=== PATIENT | male | born 1950 | race Caucasian/White ===

== ENCOUNTER 2016-10-31 13:04 | Outpatient (CLI) | payer MEDICAID | END 2016-10-31 13:05 | disposition home or self-care (01) | DX: E11.9 Type 2 diabetes mellitus without complications (principal); E78.5 Hyperlipidemia, unspecified; I10 Essential (primary) hypertension ==

== ENCOUNTER 2017-02-04 10:26 | Outpatient (CLI) | payer MEDICAID | END 2017-02-04 10:27 | disposition home or self-care (01) | DX: E78.5 Hyperlipidemia, unspecified (principal); E11.9 Type 2 diabetes mellitus without complications ==

== ENCOUNTER 2017-04-18 12:48 | Emergency (ER) | payer MEDICAID ==
[2017-04-18] MEDS: HEPARIN 25,000 UNITS/500 ML 500 ML IV STA (13:02)
[2017-04-18] MEDS: ASPIRIN CHEW 81 MG TABLET PO STA (13:02)
[2017-04-18] MEDS: HEPARIN 5,000 UNIT/ML VIAL IVP ONE (13:02)
--- NOTE | 2017-04-18 13:02 | ED Physician Documentation ---
PD HPI CHEST PAIN - Stated complaint Stated Complaint: CP - Chief complaint Chief Complaint: Cardiac - History obtained from History obtained from: Patient - History of Present Illness Timing - onset: How many days ago (3 days intermittently) Timing - onset during: Rest Timing - duration: Days (3) Timing - details: Intermittant, Other (constant since 10am) Pain level max: 10 Pain level now: 10 Quality: Pressure, Aching, Pain Location: Substernal, Left chest Radiation: Other (non-radiating) Improved by: Nothing Worsened by: Other (nothing) Associated symptoms: Shortness of air, Nausea. No: Vomiting, Feeling faint / dizzy, General Weakness, Palpitations, Cough Similar symptoms before: Has not had sx before Recently seen: Not recently seen - Additional information Additional information: diabetic male. non-smoker Review of Systems Ten Systems: 10 systems reviewed and negative Constitutional: denies: Fever, Chills Ears: denies: Ear pain Nose: denies: Rhinorrhea / runny nose, Congestion Throat: denies: Sore throat Cardiac: denies: Palpitations Respiratory: denies: Cough, Hemoptysis, Wheezing GI: denies: Abdominal Pain, Nausea, Vomiting, Diarrhea Skin: denies: Rash Musculoskeletal: denies: Neck pain, Back pain Neurologic: denies: Headache PD PAST MEDICAL HISTORY - Past Medical History Past Medical History: Yes Cardiovascular: Hypertension Endocrine/Autoimmune: Type 2 diabetes - Present Medications Home Medications: Ambulatory Orders Medication Instructions Recorded Confirmed Metformin HCl 500 mg PO BID 04/18/17 04/18/17 - Allergies Allergies/Adverse Reactions: Allergies Allergy/AdvReac Type Severity Reaction Status Date / Time No Known Drug Allergies Allergy Verified 04/18/17 13:01 - Social History Does the pt smoke?: No Does the pt have substance abuse?: No - Family History Family history: reports: Non contributory PD ED PE NORMAL - Vitals Vital signs reviewed: Yes - General General: Alert and oriented X 3, No acute distress, Well developed/nourished - HEENT HEENT: Moist mucous membranes - Neck Neck: Supple, no meningeal sign - Cardiac Cardiac: RRR, Strong equal pulses - Respiratory Respiratory: No respiratory distress, Clear bilaterally - Abdomen Abdomen: Soft, Non tender, Non distended - Derm Derm: Warm and dry - Extremities Extremities: No edema, No calf tenderness / cord - Neuro Neuro: Alert and oriented X 3 - Psych Psych: Normal mood, Normal affect Results - Vitals Vitals: Vital Signs - 24 hr 04/18/17 04/18/17 04/18/17 12:49 13:00 13:10 Temperature 35.9 C L Heart Rate 104 H 99 97 Respiratory 18 22 18 Rate Blood Pressure 195/135 H 183/127 H 175/108 H O2 Saturation 100 100 100 Oxygen O2 Source Room air - EKG (time done) 1257 Rate: Rate (enter#) (103) Rhythm: Sinus tachycardia, Other (PVC) [place]: Normal Intervals: QRS normal Ischemia: ST elevation c/w ischemia (II, III, aVF), ST depression (V1-2) - Labs Labs: Laboratory Tests 04/18/17 04/18/17 04/18/17 12:55 12:55 12:55 WBC 10.9 H RBC 4.87 Hgb 15.1 Hct 43.1 MCV 88.6 MCH 31.0 MCHC 35.0 RDW 14.0 Plt Count 128 L MPV 9.1 Neut # 7.8 H Lymph # 2.2 [place] # 0.8 Eos # 0.0 Baso # 0.1 Absolute Nucleated RBC 0.01 Nucleated RBCs 0.0 Sodium 136 Potassium 3.7 Chloride 98 L Carbon Dioxide 25 Anion Gap 13.0 BUN 15 Creatinine 1.2 Estimated GFR (MDRD) 61 L Glucose 351 H Calcium 9.3 Total Bilirubin 0.9 AST 67 H ALT 50 Alkaline Phosphatase 55 Troponin I 2.87 H* Total Protein 7.5 Albumin 4.7 Globulin 2.8 Albumin/Globulin Ratio 1.7 Lipase 21 L - Rads (name of study) cxr Radiology: Prelim report reviewed, EMP read contemporaneously, See rad report ( No acute disease. ) PD MEDICAL DECISION MAKING - ED course Complexity details: reviewed old records, considered differential, d/w patient ED course: 1299 - Theresa Marjan (ED [facility]) graciously accepts in transfer. Patient was given aspirin, heparin, nitroglycerin. Activated STEMI protocol. Plavix held awaiting cardiology decision at [facility]. Patient is a 66-year-old male who walked into the emergency department with crushing substernal chest pain. This been intermittent the past 3 days, became constant this morning. Appears to have an inferior STEMI. STEMI protocol activated will transfer to [facility]. This document was made in part using voice recognition software. While efforts are made to proofread this document, sound alike and grammatical errors may occur. CXR taken, will fax report. Departure - Departure Disposition: 02 Transfer Acute Care Hosp Clinical Impression: STEMI (ST elevation myocardial infarction) Qualifiers: Involved coronary artery: unspecified coronary artery Qualified Code(s): I21.3 - ST elevation (STEMI) myocardial infarction of unspecified site Condition: Stable Discharge Date/Time: 04/18/17 13:12
[2017-04-18] MEDS: NITROGLYCERIN SL 0.4 MG TABLET SL STA (13:05)
[2017-04-18 13:06] LABS: BASOPHILS # (AUTO) 0.1 10^3/uL (0.0-0.1); BASOPHILS % (AUTO) 0.5 %; EOSINOPHILS % (AUTO) 0.4 %; HCT - HEMATOCRIT 43.1 % (42.0-52.0); HGB - HEMOGLOBIN 15.1 g/dL (14.0-18.0); LYMPHOCYTES # (AUTO) 2.2 10^3/uL (1.5-3.5); LYMPHOCYTES % (AUTO) 20.2 %; MEAN CORPUSCULAR VOLUME 88.6 fL (80.0-94.0); MEAN PLATELET VOLUME 9.1 fL (7.4-11.4); MONOCYTES # (AUTO) 0.8 10^3/uL (0.0-1.0); MONOCYTES % (AUTO) 7.4 %; NEUTROPHILS # (AUTO) 7.8 10^3/uL (1.5-6.6); NEUTROPHILS % (AUTO) 71.5 %; RED BLOOD COUNT 4.87 10^6/uL (4.70-6.10); UNCORRECTED WHITE BLOOD COUNT 10.9 x10^3/uL; WHITE BLOOD COUNT 10.9 x10^3/uL (4.8-10.8)
--- NOTE | 2017-04-18 13:12 | XRAY Preliminary Report ---
Exam: XR Chest 1 View IMPRESSION: No acute disease. [facility] SITE ID: [id number]
[2017-04-18 13:15] VITALS: BP 175/108
--- NOTE | 2017-04-18 13:15 | XRAY Report ---
EXAM: CHEST RADIOGRAPHY EXAM DATE: 04/18/2017 01:05 PM. CLINICAL HISTORY: Chest pain. COMPARISON: 09/08/2009. TECHNIQUE: 1 view. FINDINGS: Lungs/Pleura: No localized infiltrate, consolidation, effusion, or pneumothorax. Mediastinum: Normal heart size, unchanged. No definite distention of pulmonary vessels. Other: Degenerative changes. IMPRESSION: No acute disease. [facility] Referring Provider Line: [phone] SITE ID: [id number]
[2017-04-18 13:18] LABS: ALBUMIN/GLOBULIN RATIO 1.7 (1.0-2.2); BILIRUBIN,TOTAL 0.9 mg/dL (0.2-1.0); CALCIUM 9.3 mg/dL (8.5-10.3); CREATININE 1.2 mg/dL (0.6-1.2); POTASSIUM 3.7 mmol/L (3.5-5.0); TOTAL PROTEIN 7.5 g/dL (6.7-8.2)
== END 2017-04-18 13:12 | disposition short-term general hospital (02) ==
LOC: ED 12:48
DX: I21.3 ST elevation (STEMI) myocardial infarction of unspecified site (principal); I49.3 Ventricular premature depolarization; I10 Essential (primary) hypertension; E11.9 Type 2 diabetes mellitus without complications; Z79.84 Long term (current) use of oral hypoglycemic drugs
CPT/HCPCS: 36415; 71010; 80053; 83690; 84484; 85025; 93005; 96374; 96376; 99284; 99285

== ENCOUNTER 2017-04-18 13:17 | Outpatient (CLI) | payer MEDICAID | END 2017-04-18 13:18 | disposition short-term general hospital (02) | LOC: EMS 13:17 | PROVIDERS: ATTEND Surgery | DX: I21.3 ST elevation (STEMI) myocardial infarction of unspecified site (principal) | CPT/HCPCS: A0425; A0427 ==

== ENCOUNTER 2017-05-08 09:48 | Outpatient (CLI) | payer MEDICAID ==
[2017-05-08 19:07] LABS: HEMOGLOBIN A1C 1.06 g/dL
[2017-05-08 19:12] LABS: ALBUMIN/GLOBULIN RATIO 1.5 (1.0-2.2); BILIRUBIN,TOTAL 0.6 mg/dL (0.2-1.0); BUN - BLOOD UREA NITROGEN 14 mg/dL (6-20); CALCIUM 8.9 mg/dL (8.5-10.3); CARBON DIOXIDE - CO2 28 mmol/L (21-32); CHLORIDE 106 mmol/L (101-111); CHOL/HDL RATIO 3.4 (<5.0); CHOLESTEROL 117 mg/dL; GFR - MDRD 75 (>89); GLUCOSE 122 mg/dL (70-100); HDL CHOLESTEROL 34 mg/dL; LDL/HDL RATIO 1.8 (<3.6); POTASSIUM 4.1 mmol/L (3.5-5.0); SODIUM 142 mmol/L (135-145); TOTAL PROTEIN 6.9 g/dL (6.7-8.2); TRIGLYCERIDES 109 mg/dL; VLDL CHOLESTEROL 22 mg/dL
[2017-05-08 19:54] LABS: BILIRUBIN,URINE NEGATIVE (NEGATIVE); PH,URINE 5.5 PH (5.0-7.5)
[2017-05-08 21:13] LABS: UR CULTURE IF IND NOT INDICATED; WBC,URINE 0-3 /HPF (0-3)
== END 2017-05-08 09:49 | disposition home or self-care (01) ==
LOC: LAB.F 09:48
PROVIDERS: ATTEND Nurse Practitioner Family
DX: E11.9 Type 2 diabetes mellitus without complications (principal); E78.5 Hyperlipidemia, unspecified
CPT/HCPCS: 36415; 80053; 80061; 81001; 83036; 87086

== ENCOUNTER 2017-08-26 09:45 | Outpatient (CLI) | payer MEDICAID ==
[2017-08-26 18:17] LABS: BILIRUBIN,URINE NEGATIVE (NEGATIVE)
[2017-08-26 18:30] LABS: UR CULTURE IF IND NOT INDICATED; WBC,URINE 0-3 /HPF (0-3)
[2017-08-26 18:35] LABS: BASOPHILS % (AUTO) 0.4 %; EOSINOPHILS # (AUTO) 0.1 10^3/uL (0.0-0.7); EOSINOPHILS % (AUTO) 2.1 %; HCT - HEMATOCRIT 41.5 % (42.0-52.0); HGB - HEMOGLOBIN 13.9 g/dL (14.0-18.0); LYMPHOCYTES # (AUTO) 1.5 10^3/uL (1.5-3.5); LYMPHOCYTES % (AUTO) 27.3 %; MEAN CORPUSCULAR HEMOGLOBIN 30.4 pg (27.0-31.0); MEAN CORPUSCULAR HGB CONC 33.4 g/dL (32.0-36.0); MEAN PLATELET VOLUME 9.6 fL (7.4-11.4); MONOCYTES # (AUTO) 0.4 10^3/uL (0.0-1.0); MONOCYTES % (AUTO) 7.5 %; NEUTROPHILS # (AUTO) 3.4 10^3/uL (1.5-6.6); NEUTROPHILS % (AUTO) 62.7 %; NUCLEATED RED BLOOD CELLS AUTO 0.1 /100WBC; RED BLOOD COUNT 4.55 10^6/uL (4.70-6.10); RED CELL DISTRIBUTION WIDTH 14.3 % (12.0-15.0); UNCORRECTED WHITE BLOOD COUNT 5.4 x10^3/uL; WHITE BLOOD COUNT 5.4 x10^3/uL (4.8-10.8)
[2017-08-26 19:18] LABS: ALBUMIN/GLOBULIN RATIO 1.8 (1.0-2.2); BILIRUBIN,TOTAL 0.9 mg/dL (0.2-1.0); BUN - BLOOD UREA NITROGEN 16 mg/dL (6-20); CALCIUM 8.9 mg/dL (8.5-10.3); CARBON DIOXIDE - CO2 26 mmol/L (21-32); CHLORIDE 106 mmol/L (101-111); CHOL/HDL RATIO 3.8 (<5.0); CHOLESTEROL 140 mg/dL; CREATININE 1.1 mg/dL (0.6-1.2); GFR - MDRD 67 (>89); GLUCOSE 100 mg/dL (70-100); HDL CHOLESTEROL 37 mg/dL; LDL/HDL RATIO 2.2 (<3.6); SODIUM 138 mmol/L (135-145); TOTAL PROTEIN 6.5 g/dL (6.7-8.2); TRIGLYCERIDES 107 mg/dL; VLDL CHOLESTEROL 21 mg/dL
[2017-08-26 20:07] LABS: HEMOGLOBIN A1C 0.74 g/dL
== END 2017-08-26 09:46 | disposition home or self-care (01) ==
LOC: LAB.S 09:45
PROVIDERS: ATTEND Nurse Practitioner Family
DX: E11.9 Type 2 diabetes mellitus without complications (principal)
CPT/HCPCS: 36415; 80053; 80061; 81001; 82043; 82570; 83036; 84443; 85025; 87086

== ENCOUNTER 2017-11-19 08:55 | Outpatient (CLI) | payer OTHER ==
--- NOTE | 2017-11-19 13:51 | XRAY Report ---
THREE VIEW LUMBAR SPINE: 11/19/2017 CLINICAL INDICATION: Pain. FINDINGS: AP, lateral, coned down views of the lumbar spine demonstrate mild degenerative disk and facet disease. There is right hemisacralization of the lumbar spine, with pseudarthrosis formation. No compression fracture or subluxation is present. IMPRESSION: MILD DEGENERATIVE CHANGES. RIGHT HEMISACRALIZATION OF L5. TD: 11/19/2017 13:50
--- NOTE | 2017-11-19 13:52 | XRAY Report ---
CERVICAL SPINE WITH FLEXION AND EXTENSION: 11/19/2017 CLINICAL INDICATION: Neck sprain. FINDINGS: AP, lateral neutral, lateral flexion, lateral extension, odontoid views of the cervical spine demonstrate mild degenerative disk disease. There is no abnormal motion on flexion or extension to suggest ligamentous laxity. The prevertebral soft tissues appear unremarkable. IMPRESSION: MILD DEGENERATIVE CHANGES. NO EVIDENCE OF LIGAMENTOUS LAXITY ON FLEXION OR EXTENSION. TD: 11/19/2017 13:52
== END 2017-11-19 08:56 | disposition home or self-care (01) ==
LOC: DI.S 08:55
PROVIDERS: ATTEND Chiropractor
DX: M51.36 Other intervertebral disc degeneration, lumbar region (principal); M47.896 Other spondylosis, lumbar region; M50.30 Other cervical disc degeneration, unspecified cervical region
CPT/HCPCS: 72052; 72100

== ENCOUNTER 2017-12-23 08:00 | Outpatient (CLI) | payer MEDICARE, MEDICAID ==
[2017-12-23 19:21] LABS: HEMOGLOBIN A1C 0.71 g/dL; HEMOGLOBIN A1C % 6.5 % (4.6-6.2)
== END 2017-12-23 08:01 ==
LOC: LAB.S 08:00
PROVIDERS: ATTEND Nurse Practitioner Family
DX: E11.9 Type 2 diabetes mellitus without complications (principal)
CPT/HCPCS: 36415; 83036

== ENCOUNTER 2018-03-24 08:00 | Outpatient (CLI) | payer MEDICARE, MEDICAID ==
[2018-03-24 18:40] LABS: HB2 TOTAL 15.4 g/dL; HEMOGLOBIN A1C 0.78 g/dL; HEMOGLOBIN A1C % 6.8 % (4.6-6.2)
== END 2018-03-24 08:01 | disposition home or self-care (01) ==
LOC: LAB.S 08:00
PROVIDERS: ATTEND Nurse Practitioner Family
DX: E11.9 Type 2 diabetes mellitus without complications (principal)
CPT/HCPCS: 36415; 83036

== ENCOUNTER 2018-06-25 08:20 | Outpatient (CLI) | payer MEDICARE, MEDICAID | END 2018-06-25 08:21 | disposition home or self-care (01) | LOC: RT.S 08:20 | PROVIDERS: ATTEND Nurse Practitioner Family | DX: I49.9 Cardiac arrhythmia, unspecified (principal); R30.0 Dysuria | CPT/HCPCS: 81001; 93005 ==

== ENCOUNTER 2018-06-25 09:00 | Outpatient (CLI) | payer MEDICARE, MEDICAID ==
[2018-06-25 19:44] LABS: BILIRUBIN,URINE NEGATIVE (NEGATIVE); GLUCOSE, URINE (UA) 100 mg/dL (NEGATIVE); KETONES,URINE (UA) NEGATIVE (NEGATIVE); LEUKOCYTE ESTERASE, URINE NEGATIVE (NEGATIVE); NITRITE,URINE NEGATIVE (NEGATIVE); OCCULT BLOOD,URINE NEGATIVE (NEGATIVE); PH,URINE 5.5 PH (5.0-7.5); PROTEIN,URINE NEGATIVE (NEGATIVE); UROBILINOGEN,URINE 0.2 (NORMAL) E.U./dL (NORMAL)
[2018-06-25 19:58] LABS: BACTERIA,URINE None Seen /HPF (None Seen); CLARITY,URINE CLEAR (CLEAR); CRYSTALS,URINE >50 Calcium Oxalate /LPF; RBC,URINE None Seen /HPF (0-5); SQUAMOUS EPITHELIAL CELL,UR NONE SEEN (<= Few)
== END 2018-06-25 09:01 | disposition home or self-care (01) ==
LOC: LAB.R 09:00
PROVIDERS: ATTEND Nurse Practitioner Family
DX: R30.0 Dysuria (principal)
CPT/HCPCS: 81001; 87086

== ENCOUNTER 2019-01-08 11:23 | Outpatient (CLI) | payer MEDICARE, MEDICAID ==
[2019-01-08 17:12] LABS: BASOPHILS % (AUTO) 0.5 %; EOSINOPHILS # (AUTO) 0.1 10^3/uL (0.0-0.7); EOSINOPHILS % (AUTO) 1.4 %; HGB - HEMOGLOBIN 13.9 g/dL (14.0-18.0); LYMPHOCYTES # (AUTO) 1.1 10^3/uL (1.5-3.5); LYMPHOCYTES % (AUTO) 19.3 %; MEAN CORPUSCULAR HEMOGLOBIN 30.6 pg (27.0-31.0); MEAN CORPUSCULAR HGB CONC 33.2 g/dL (32.0-36.0); MEAN CORPUSCULAR VOLUME 92.3 fL (80.0-94.0); MEAN PLATELET VOLUME 10.2 fL (7.4-11.4); MONOCYTES # (AUTO) 0.4 10^3/uL (0.0-1.0); MONOCYTES % (AUTO) 6.9 %; NEUTROPHILS # (AUTO) 4.3 10^3/uL (1.5-6.6); NEUTROPHILS % (AUTO) 71.9 %; PLT - PLATELET COUNT 122 10^3/uL (130-450); RED BLOOD COUNT 4.55 10^6/uL (4.70-6.10); RED CELL DISTRIBUTION WIDTH 14.2 % (12.0-15.0); WHITE BLOOD COUNT 5.9 x10^3/uL (4.8-10.8)
[2019-01-08 17:30] LABS: HB2 TOTAL 15.1 g/dL; HEMOGLOBIN A1C 0.87 g/dL; HEMOGLOBIN A1C % 7.4 % (4.6-6.2)
[2019-01-08 17:34] LABS: ALBUMIN 4.1 g/dL (3.2-5.5); ALBUMIN/GLOBULIN RATIO 1.5 (1.0-2.2); ALKALINE PHOSPHATASE 39 IU/L (42-121); ALT ALANINE AMINOTRANSFERASE 36 IU/L (10-60); AST ASPARTATE AMINOTRANSFERASE 28 IU/L (10-42); BILIRUBIN,TOTAL 1.1 mg/dL (0.2-1.0); BUN - BLOOD UREA NITROGEN 17 mg/dL (6-20); CALCIUM 8.8 mg/dL (8.5-10.3); CARBON DIOXIDE - CO2 27 mmol/L (21-32); CHLORIDE 104 mmol/L (101-111); CHOL/HDL RATIO 6.8 (<5.0); CHOLESTEROL 245 mg/dL; CREATININE 0.9 mg/dL (0.6-1.2); GFR - MDRD 84 (>89); GLUCOSE 177 mg/dL (70-100); HDL CHOLESTEROL 36 mg/dL; LDL CHOLESTEROL,CALCULATED 166 mg/dL; LDL/HDL RATIO 4.6 (<3.6); SODIUM 140 mmol/L (135-145); TOTAL PROTEIN 6.9 g/dL (6.7-8.2); VLDL CHOLESTEROL 43 mg/dL
[2019-01-08 17:38] LABS: CREATININE,URINE 174.2 mg/dL; MICROALBUM/CREATININE RATIO,UR 19.5 ug/mg (<30.0); MICROALBUMIN,URINE 3.4 mg/dL (0-300.0)
== END 2019-01-08 11:24 | disposition home or self-care (01) ==
LOC: LAB.F 11:23
PROVIDERS: ATTEND Nurse Practitioner Family
DX: I10 Essential (primary) hypertension (principal); Z13.220 Encounter for screening for lipoid disorders; E11.9 Type 2 diabetes mellitus without complications
CPT/HCPCS: 36415; 80053; 80061; 82043; 82570; 83036; 83721; 84443; 85025

== ENCOUNTER 2020-04-26 09:27 | Outpatient (CLI) | payer MEDICARE, MEDICAID ==
[2020-04-26 15:06] LABS: BASOPHILS % (AUTO) 0.5 %; EOSINOPHILS # (AUTO) 0.1 10^3/uL (0.0-0.7); HGB - HEMOGLOBIN 11.9 g/dL (14.0-18.0); LYMPHOCYTES # (AUTO) 0.9 10^3/uL (1.5-3.5); LYMPHOCYTES % (AUTO) 16.9 %; MEAN CORPUSCULAR HEMOGLOBIN 30.8 pg (27.0-31.0); MEAN CORPUSCULAR HGB CONC 32.1 g/dL (32.0-36.0); MEAN CORPUSCULAR VOLUME 96.1 fL (80.0-94.0); MEAN PLATELET VOLUME 11.8 fL (7.4-11.4); MONOCYTES # (AUTO) 0.5 10^3/uL (0.0-1.0); MONOCYTES % (AUTO) 8.1 %; PLT - PLATELET COUNT 129 10^3/uL (130-450); RED BLOOD COUNT 3.86 10^6/uL (4.70-6.10); WHITE BLOOD COUNT 5.6 x10^3/uL (4.8-10.8)
[2020-04-26 15:24] LABS: ALBUMIN 4.3 g/dL (3.2-5.5); ALBUMIN/GLOBULIN RATIO 1.7 (1.0-2.2); ALKALINE PHOSPHATASE 38 IU/L (42-121); ALT ALANINE AMINOTRANSFERASE 40 IU/L (10-60); AST ASPARTATE AMINOTRANSFERASE 38 IU/L (10-42); BILIRUBIN,TOTAL 0.9 mg/dL (0.2-1.0); BUN - BLOOD UREA NITROGEN 16 mg/dL (6-20); CALCIUM 8.6 mg/dL (8.5-10.3); CARBON DIOXIDE - CO2 25 mmol/L (21-32); CHLORIDE 104 mmol/L (101-111); CHOL/HDL RATIO 5.4 (<5.0); CHOLESTEROL 204 mg/dL; GLUCOSE 224 mg/dL (70-100); HDL CHOLESTEROL 38 mg/dL; LDL CHOLESTEROL,CALCULATED 135 mg/dL; LDL/HDL RATIO 3.6 (<3.6); SODIUM 137 mmol/L (135-145); TOTAL PROTEIN 6.9 g/dL (6.7-8.2); VLDL CHOLESTEROL 31 mg/dL
[2020-04-26 15:26] LABS: MICROALBUMIN,URINE 7.9 mg/dL (0-300.0)
[2020-04-26 15:35] LABS: HB2 TOTAL 12.9 g/dL; HEMOGLOBIN A1C 0.8 g/dL; HEMOGLOBIN A1C % 7.8 % (4.6-6.2)
== END 2020-04-26 09:28 | disposition home or self-care (01) ==
LOC: LAB.S 09:27
PROVIDERS: ATTEND Registered Nurse
DX: I10 Essential (primary) hypertension (principal); E78.5 Hyperlipidemia, unspecified; E11.9 Type 2 diabetes mellitus without complications; R53.83 Other fatigue; Z12.5 Encounter for screening for malignant neoplasm of prostate
CPT/HCPCS: 36415; 80053; 80061; 82043; 82570; 83036; 84403; 84443; 85025; G0103; 83721; 84153

== ENCOUNTER 2020-07-20 11:47 | Outpatient (CLI) | payer MEDICARE, MEDICAID ==
[2020-07-20 12:10] LABS: BASOPHILS % (AUTO) 0.5 %; EOSINOPHILS # (AUTO) 0.1 10^3/uL (0.0-0.7); EOSINOPHILS % (AUTO) 0.8 %; LYMPHOCYTES # (AUTO) 0.9 10^3/uL (1.5-3.5); LYMPHOCYTES % (AUTO) 13.8 %; MEAN CORPUSCULAR HEMOGLOBIN 30.6 pg (27.0-31.0); MEAN CORPUSCULAR HGB CONC 31.2 g/dL (32.0-36.0); MEAN CORPUSCULAR VOLUME 98.1 fL (80.0-94.0); MEAN PLATELET VOLUME 10.4 fL (7.4-11.4); MONOCYTES # (AUTO) 0.4 10^3/uL (0.0-1.0); MONOCYTES % (AUTO) 5.6 %; NEUTROPHILS # (AUTO) 5.1 10^3/uL (1.5-6.6); NEUTROPHILS % (AUTO) 78.8 %; PLT - PLATELET COUNT 117 10^3/uL (130-450); RED CELL DISTRIBUTION WIDTH 16.4 % (12.0-15.0); WHITE BLOOD COUNT 6.5 x10^3/uL (4.8-10.8)
== END 2020-07-20 11:48 | disposition home or self-care (01) ==
LOC: LAB 11:47
PROVIDERS: ATTEND Physician Assistant
DX: R60.0 Localized edema (principal); D64.9 Anemia, unspecified; R53.83 Other fatigue; R06.02 Shortness of breath; I49.9 Cardiac arrhythmia, unspecified; I25.10 Atherosclerotic heart disease of native coronary artery without angina pectoris; E11.9 Type 2 diabetes mellitus without complications; I10 Essential (primary) hypertension
CPT/HCPCS: 36415; 83880; 84484; 85025

== ENCOUNTER 2020-07-20 14:47 | Inpatient (IN) | payer MEDICARE, MEDICAID ==
--- NOTE | 2020-07-20 15:15 | ED Physician Documentation ---
History of Present Illness - Stated complaint Stated Complaint: DIZZY,REALLY SLOW - Chief complaint Chief Complaint: Cardiac - Additonal information Additional information: 69-year-old male referred to the emergency department for evaluation of progressive dyspnea and orthopnea. This gentleman reports that for the last 5 to 6 months he has had progressive dyspnea especially with ambulation and certainly worse when supine. He has also noticed that his legs have been getting swollen since February of this year. He does report a history of paroxysmal atrial fibrillation. He does have a history of previous myocardial infarction with multiple stents being placed. This was completed in [place]. This a.m. he presented to his primary care office for evaluation of the dyspnea. Screening labs were completed and it does show that he has a BNP greater than 700. The provider at the primary care clinic did prescribe him anticoagulation medication as well as metoprolol but requested that he come to the ER for further screening. This gentleman denies chest pain, abdominal pain vomiting dysuria hematuria or bloody stools Review of Systems Constitutional: denies: Fever, Chills Cardiac: reports: Chest pain / pressure, Palpitations, Pedal edema (BLE leg swelling) Respiratory: reports: Dyspnea. denies: Cough GI: reports: Abdominal Swelling. denies: Abdominal Pain, Nausea, Vomiting, Constipation, Hematemesis : denies: Dysuria, Frequency, Hesitancy Skin: denies: Rash, Lesions Musculoskeletal: reports: Reviewed and negative Neurologic: reports: Reviewed and negative PD PAST MEDICAL HISTORY - Past Medical History Cardiovascular: Hypertension Endocrine/Autoimmune: Type 2 diabetes - Present Medications Home Medications: Ambulatory Orders Medication Instructions Recorded Confirmed Metformin HCl 500 mg PO BID 04/18/17 04/18/17 - Allergies Allergies/Adverse Reactions: Allergies Allergy/AdvReac Type Severity Reaction Status Date / Time No Known Drug Allergies Allergy Verified 07/20/20 15:01 - Social History Does the pt smoke?: No Does the pt have substance abuse?: No PD ED PE EXPANDED - General General: Alert, No acute distress - Neck Neck: Supple w/out meningeal sx. No: JVD present - Cardiac Cardiac: Irregularly irregular, Murmur Present, Radial strong equal, Cap refill < 2 sec - Respiratory Respiratory: Clear to ausultation jamel, Other (tachypnea) - Abdomen Abdomen: Normal Bowel sounds, Distended. No: Tender to palpation - Derm Derm: Normal color. No: Petecchiae, Purpura - Extremities Extremities: Pedal edema bilateral, Pedal Pulses Present - Neuro Neuro: Alert and Oriented X 3, CNII-XII intact - GCS Eye Opening: Spontaneous Motor: Obeys Commands Verbal: Oriented Total: 15 Results - Vitals Vitals: Vital Signs - 24 hr 07/20/20 07/20/20 07/20/20 14:56 15:33 15:44 Temperature 36.9 C Heart Rate 107 H 128 H 114 H Respiratory 24 20 18 Rate Blood Pressure 141/109 H 131/106 H 127/89 H O2 Saturation 98 98 94 Oxygen O2 Source Room air - EKG (time done) 1453 Rate: Rate (enter#) (115) Rhythm: Atrial fibrillation [place]: LAD Intervals: Normal SD Ischemia: Non specific changes Compare to prior EKG: Changed from prior EKG Computer interpretation: Agree with computer (previous EKG sinus rythm) - Labs Labs: Laboratory Tests 07/20/20 07/20/20 07/20/20 15:17 15:17 15:17 WBC 6.6 RBC 3.69 L Hgb 11.2 L Hct 36.0 L MCV 97.6 H MCH 30.4 MCHC 31.1 L RDW 16.3 H Plt Count 122 L MPV 10.6 Neut # (Auto) 5.3 Lymph # (Auto) 0.9 L [place] # (Auto) 0.4 Eos # (Auto) 0.0 Baso # (Auto) 0.0 Absolute Nucleated RBC 0.00 Nucleated RBC % 0.0 Sodium 138 Potassium 4.5 Chloride 100 L Carbon Dioxide 24 Anion Gap 14.0 H BUN 24 H Creatinine 1.2 Estimated GFR (MDRD) 60 L Glucose 203 H Calcium 9.3 Total Bilirubin 1.5 H AST 36 ALT 32 Alkaline Phosphatase 78 Troponin I High Sens 24.9 H* Total Protein 7.1 Albumin 4.1 Globulin 3.0 Albumin/Globulin Ratio 1.4 Lipase 36 - Rads (name of study) CXR Radiology: Final report received (Mild interstitial prominence with heart size at or just above the upper limits of normal.) PD MEDICAL DECISION MAKING - ED course Complexity details: reviewed results, re-evaluated patient, considered differential, d/w patient, d/w family ED course: 69-year-old male presents to the emergency department for evaluation of progressive dyspnea of 5 to 6 months duration, orthopnea, lower leg swelling and findings of atrial fibrillation on EKG. He was seen earlier in the day at a walk-in clinic and found to have a mildly elevated elevated troponin of 26 and a BNP greater than 700. - Here in the emergency department he presented with an initial heart rate that was variable in the 120s. His blood pressure was only mildly elevated. This gentleman was given 10 mg of diltiazem which successfully reduced his heart rate into the 90s. He remained normotensive. His ECG rhythm remains atrial fib possibly flutter. 40 mg of lasix ordered IV. His trop is mildly elevated in the 20's. Likely represent troponin leak in the setting of heart failure. - 1600: I have spoken with Dr. Nitin Meneses who agrees to bring pt into the hospital for evaluation of CHD, likely echo in am and diuresis. Departure - Departure Disposition: ED Place in Observation Clinical Impression: Atrial fibrillation Qualifiers: Atrial fibrillation type: unspecified Qualified Code(s): I48.91 - Unspecified atrial fibrillation CHF (congestive heart failure) Qualifiers: Heart failure type: unspecified Heart failure chronicity: acute Qualified Code(s): I50.9 - Heart failure, unspecified Dyspnea Qualifiers: Dyspnea type: orthopnea Qualified Code(s): R06.01 - Orthopnea
[2020-07-20] MEDS ORDERED: diltiaZEM INJ 5 MG/ML VIAL IVP STA ×2 (15:18→15:45)
[2020-07-20 15:29] LABS: BASOPHILS % (AUTO) 0.5 %; EOSINOPHILS % (AUTO) 0.6 %; HGB - HEMOGLOBIN 11.2 g/dL (14.0-18.0); LYMPHOCYTES # (AUTO) 0.9 10^3/uL (1.5-3.5); LYMPHOCYTES % (AUTO) 13.1 %; MEAN CORPUSCULAR HEMOGLOBIN 30.4 pg (27.0-31.0); MEAN CORPUSCULAR HGB CONC 31.1 g/dL (32.0-36.0); MEAN CORPUSCULAR VOLUME 97.6 fL (80.0-94.0); MEAN PLATELET VOLUME 10.6 fL (7.4-11.4); MONOCYTES # (AUTO) 0.4 10^3/uL (0.0-1.0); MONOCYTES % (AUTO) 5.9 %; NEUTROPHILS # (AUTO) 5.3 10^3/uL (1.5-6.6); NEUTROPHILS % (AUTO) 79.4 %; PLT - PLATELET COUNT 122 10^3/uL (130-450); RED BLOOD COUNT 3.69 10^6/uL (4.70-6.10); RED CELL DISTRIBUTION WIDTH 16.3 % (12.0-15.0); WHITE BLOOD COUNT 6.6 x10^3/uL (4.8-10.8)
--- NOTE | 2020-07-20 15:33 | XRAY Report ---
PROCEDURE: Chest 1 View X-Ray INDICATIONS: Chest Pain TECHNIQUE: One view of the chest was acquired. COMPARISON: 03/19/2017 chest plain film FINDINGS: Surgical changes and devices: None. Lungs and pleura: No pleural effusions or pneumothorax. Lungs are abnormal with a mild interstitial prominence. Mediastinum: Mediastinal contours appear normal. Heart size is at or just above the upper limits of normal. Bones and chest wall: No suspicious bony lesions. Overlying soft tissues appear unremarkable. IMPRESSION: Mild interstitial prominence with heart size at or just above the upper limits of normal. Possible ca rdiogenic chest pain in this clinical circumstance. Reviewed by: Wilman French MD on 07/20/2020 3:32 PM PDT Approved by: Wilman French MD on 07/20/2020 3:32 PM PDT Station ID: [id number]
[2020-07-20 15:43] LABS: ALBUMIN 4.1 g/dL (3.2-5.5); ALBUMIN/GLOBULIN RATIO 1.4 (1.0-2.2); BILIRUBIN,TOTAL 1.5 mg/dL (0.2-1.0); CALCIUM 9.3 mg/dL (8.5-10.3); CREATININE 1.2 mg/dL (0.6-1.2); TOTAL PROTEIN 7.1 g/dL (6.7-8.2)
[2020-07-20] MEDS ORDERED: ACETAMINOPHEN 325 MG TABLET PO PRN (15:59)
[2020-07-20] MEDS ORDERED: FUROSEMIDE 20 MG/2 ML VIAL IVP STA (15:59)
[2020-07-20] MEDS ORDERED: SODIUM CHLORIDE FLUSH 0.9% 10 ML SYRINGE IVP PRN (15:59)
[2020-07-20] MEDS ORDERED: ONDANSETRON 4 MG/2 ML VIAL IVP PRN (15:59)
--- NOTE | 2020-07-20 16:02 | HISTORY & PHYSICAL EXAMINATION ---
Chief Complaint - Chief Complaint Chief Complaint: Shortness of breath History of Present Illness - Admitted From Admitted From:: Home - History Obtained From Records Reviewed: Yes History obtained from: Patient, ER Provider, EMR - History of Present Illness HPI Comment/Other: This is a 69-year-old male with history of coronary artery disease status post stenting back in 2017, type 2 diabetes mellitus on Metformin who presents today due to worsening shortness of breath. He states is been going on for quite a few months now but he has become progressively more short of breath over the past 4 to 5 weeks. He has also noticed his legs become more edematous and that he developed palpitations over the past few weeks as well. He also endorses or thopnea. He reports occasional chest pain when he physic his heart is racing. Dyspnea is present with exertion but is now also present at rest at times. He saw his primary care provider this morning and he was found to be in atrial relation with rapid ventricular response and so he was referred to the emergency department. The patient states he did see cardiology in the past after he had a myocardial infarction back in 2017. He does take aspirin as well as a statin and lisinopril. He was previously on metoprolol but he is not sure why this was discontinued recently. He has not followed up with his bag mender in quite some time as he did not want to drive to [place] in [facility]. No fevers but has felt malaise and dizzy over the past few weeks as well. He does have some diarrhea which she attributes to the Metformin. No nausea or vomiting. In the emergency department, he was found to be afebrile with temperature of 36.9 C. He is tachycardic with a heart rate in the 120s and atrial fibrillation. His blood pressure is 131/106. He was not tachypneic and saturating well on room air. He was given diltiazem IV with improvement in his heart rates to the 90s. His lab significant for a blood glucose of 203 and a troponin of 24.9. BNP and troponin obtained earlier on during the day were elevated at 736 and 26, respectively. X-ray did reveal cardiomegaly and p ossible pulmonary vascular congestion. His EKG did not suggest ischemia. He was given a dose of Lasix IV in the emergency department. Given the above findings, medicine was consulted for admission. I did discuss goals of care with the patient and he would like to be a DNR. History - Past Medical History Cardiovascular: reports: Hypertension, Coronary artery disease Neuro: reports: Head injury Endocrine/Autoimmune: reports: Type 2 diabetes : reports: Kidney stones - Past Surgical History Cardiovascular: reports: Coronary stent - Family & Social History Family History Comment/Other: He reports both of his parents young. His father had congestive heart failure and coronary artery disease. His mother also had diabetes and coronary artery disease. Living arrangement: At home Living Situation: Alone Social History Notes: He has lived on [facility] for the past 30 years. He lives at home alone. 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 He is a non-smoker. He will occasionally drink a glass of wine on a daily basis. No illicit drug use. Meds/Allgy - Home Medications Home Medications: Ambulatory Orders Medication Instructions Recorded Confirmed Metformin HCl 1,000 mg PO BID 04/18/17 07/20/20 Atorvastatin [Lipitor] 25 mg PO QPM 07/20/20 07/20/20 Glipizide 5 mg PO BID PRN 07/20/20 07/20/20 Lisinopril [Zestril] 40 mg PO DAILY 07/20/20 07/20/20 - Allergies Allergies/Adverse Reactions: Allergies Allergy/AdvReac Type Severity Reaction Status Date / Time No Known Drug Allergies Allergy Verified 07/20/20 15:01 Review of Systems - Constitutional Constitutional: reports: Fatigue, Malaise, Weakness. denies: Fever, Chills - Ears, Nose & Throat Ears, Nose & Throat: denies: Sore throat - Cardiovascular Cariovascular: reports: Palpitations, Chest pain, Edema, Lightheadedness, Exertional dyspnea, Decr. exercise tolerance - Respiratory Respiratory: reports: Cough, Orthopnea, SOB at rest, SOB with exertion - Gastrointestinal Gastrointestinal: reports: Diarrhea. denies: Abdominal pain, Change in bowel habits, Nausea, Vomiting - Genitourinary Genitourinary: denies: Dysuria, Frequency, Urgency, Hematuria - Integumentary Integumentary: denies: Rash - Neurological Neurological: reports: Dizziness. denies: Focal weakness - All Other Systems All Other Systems: reports: Reviewed and negative Prior Level of Functionality: He is independent with his ADLs. Exam - Vital Signs Reviewed Vital Signs: Yes Vital Signs: Vital Signs x48h Temp Pulse Resp BP Pulse Ox 07/20/20 15:44 114 H 18 127/89 H 94 07/20/20 15:33 128 H 20 131/106 H 98 07/20/20 14:56 36.9 C 107 H 24 141/109 H 98 - Physical Exam General Appearance: positive: No acute distress, Alert Eyes Bilateral: positive: Normal inspection, Conjunctivae nml ENT: positive: ENT inspection nml Neck: positive: Nml inspection Respiratory: positive: No respiratory distress. negative: Wheezes, Rales Cardiovascular: positive: No murmur, Irregularly irregular, Tachycardia. ne gative: Bradycardia, Systolic murmur Abdomen: positive: Non-tender, No distention. negative: Tenderness, Guarding, Rebound Skin: positive: Warm, Dry Extremities: positive: Full ROM, Pedal edema (+2 pitting edema in bilateral lower extremities. This extends to above both of his knees.) Neurologic/Psychiatric: positive: Oriented x3, Motor nml. negative: Disoriented to person, Disoriented to place, Disoriented to time Conclusion/Plan - Problem List (1) Atrial fibrillation with RVR Conclusion/Plan: This is a new diagnosis for him. His heart rate is improved but still remains elevated in the 90s to low 100s. He did respond well to diltiazem in the emergency department. We will place him on metoprolol given the concern for heart failure with reduced ejection fraction. We discussed anticoagulation and he is agreeable to Eliquis which she will start this evening. We will monitor him on telemetry. Obtain echocardiogram. Check TSH. (2) New onset of congestive heart failure Conclusion/Plan: Presents with worsening dyspnea on exertion and although his BNP is only in the 700s, his x-ray does reveal cardiomegaly and likely pulmonary vascular congestion. He also has significant lower extremity edema. He was given Lasix in the emergency department with improvement in symptoms. We will continue on Lasix 40 mg IV daily. Obtain echocardiogram in the morning. If his ejection fraction is reduced, he will need appropriate medical therapy and outpatient follow-up with cardiology. Stract I's and O's. Daily weights. (3) Type 2 diabetes mellitus Conclusion/Plan: He is on metformin at home. His last A1c was 7.8%. We will place him on sliding scale and carb controlled diet. Check A1c. (4) History of coronary artery disease Conclusion/Plan: He has known history of coronary artery disease with stenting back in 2017 at [facility]. His troponin is elevated in the mid 20s but this is stable and suspect likely demand ischemia from the heart failure and atrial relation with rapid ventricular response. His EKG does not suggest ischemia. We will continue aspirin, Eliquis for the atrial fibrillation. We will also start him on beta-ary. Continue home statin. - Lab Results Lab results reviewed: Yes Fish Bones: 07/20/20 15:17 07/20/20 15:17 - Diagnostic Imaging Results Diagnostic Imaging Results: positive: Final report reviewed - EKG Results EKG Interpreted Independently: Yes EKG Comparison: Changed from prior EKG EKG Findings: EKG reveals atrial fibrillation with flattening of T waves in leads V5 to V6. Core Measures - Anticipated LOS I expect patient to be DC'd or transferred within 96 hours.: Yes - Issues Hospital Issues and Management Plan: 69-year-old male with history of coronary artery disease presents with dyspnea palpitations found to be in atrial patient apneic response and likely heart failure. Will admit for rate control and obtain echocardiogram. - DVT/VTE - Prophylaxis VTE/DVT Device ordered at admit?: Yes VTE/DVT Prophylaxis med ordered at admit?: No
[2020-07-20] MEDS: INSULIN ASPART 300 UNIT/3 ML PEN SUBQ SCH ×2 (17:50→21:13)
[2020-07-20] MEDS: ATORVASTATIN 40 MG TABLET PO SCH (20:38)
[2020-07-20] MEDS: APIXABAN 5 MG TABLET PO SCH (20:38)
[2020-07-20] MEDS: METOPROLOL TARTRATE 50 MG TABLET PO SCH (20:38)
[2020-07-20] MEDS: SODIUM CHLORIDE FLUSH 0.9% 10 ML SYRINGE IVP SCH (21:11)
[2020-07-21] MEDS: SODIUM CHLORIDE FLUSH 0.9% 10 ML SYRINGE IVP SCH ×3 (01:01→17:04)
[2020-07-21 05:23] LABS: BASOPHILS % (AUTO) 0.6 %; EOSINOPHILS # (AUTO) 0.1 10^3/uL (0.0-0.7); EOSINOPHILS % (AUTO) 1.1 %; HGB - HEMOGLOBIN 10.5 g/dL (14.0-18.0); LYMPHOCYTES % (AUTO) 18.3 %; MEAN CORPUSCULAR HGB CONC 31.1 g/dL (32.0-36.0); MEAN CORPUSCULAR VOLUME 96.6 fL (80.0-94.0); MEAN PLATELET VOLUME 10.6 fL (7.4-11.4); MONOCYTES # (AUTO) 0.4 10^3/uL (0.0-1.0); NEUTROPHILS % (AUTO) 72.6 %; PLT - PLATELET COUNT 115 10^3/uL (130-450); RED CELL DISTRIBUTION WIDTH 16.3 % (12.0-15.0); WHITE BLOOD COUNT 5.5 x10^3/uL (4.8-10.8)
[2020-07-21 05:31] LABS: CALCIUM 9.1 mg/dL (8.5-10.3); CREATININE 1.2 mg/dL (0.6-1.2); PHOSPHORUS 4.4 mg/dL (2.5-4.6)
--- NOTE | 2020-07-21 08:40 | PHARMACY PROGRESS NOTE ---
- Best Possible Medication History Admit Date and Time: 07/20/20 1559 Processed by: Nursing Medication History completed: Yes As the person ultimately responsible for medication therapy, providers are able to order a medication from an existing home medication list in [facility] via the "Reconcile Routine" prior to Confirmation of that medication by marketing support specialist. Such practice is discouraged except when the physician, in their clinical judgment, deems that a medical need exists for a medication without regard to previous use.
[2020-07-21] MEDS: ASPIRIN EC 81 MG TABLET PO SCH (08:50)
[2020-07-21] MEDS: APIXABAN 5 MG TABLET PO SCH ×2 (08:51→22:05)
[2020-07-21] MEDS: INSULIN ASPART 300 UNIT/3 ML PEN SUBQ SCH ×4 (08:51→22:06)
[2020-07-21] MEDS: lisinopriL 5 MG TABLET PO SCH (08:51)
[2020-07-21] MEDS: METOPROLOL TARTRATE 50 MG TABLET PO SCH ×2 (08:51→22:04)
[2020-07-21] MEDS: INSULIN GLARGINE 300 UNIT/3 ML PEN SUBQ SCH (08:53)
[2020-07-21] MEDS: FUROSEMIDE 40 MG/4 ML VIAL IVP SCH (08:53)
--- NOTE | 2020-07-21 11:15 | PROVIDER PROGRESS NOTE ---
Subjective - Prog Note Date Prog Note Date: 07/21/20 - Subjective Pt reports feeling: Improved Subjective: He reports feeling quite a bit better today but he still feels dyspneic with exertion. He also still has significant lower extremity edema. Denies any palpitations or chest pain. He has been doing a lot of research about heart failure. Current Medications - Current Medications Current Medications: Active Medications Acetaminophen (Tylenol) 650 mg PO Q4HR PRN PRN Reason: Pain 1 to 4 Apixaban (Eliquis) 5 mg PO BID [facility] Last Admin: 07/21/20 08:51 Dose: 5 mg Documented by: Aspirin (Ecotrin) 81 mg PO DAILY [facility] Last Admin: 07/21/20 08:50 Dose: 81 mg Documented by: Atorvastatin Calcium (Lipitor) 40 mg PO QPM [facility] Last Admin: 07/20/20 20:38 Dose: 40 mg Documented by: Furosemide (Lasix Inj 40 Mg Vial) 40 mg IVP DAILY [facility] Last Admin: 07/21/20 08:53 Dose: 40 mg Documented by: Insulin Aspart (Novolog) 1 - 9 unit SUBQ 0800,1200,1700,2100 [facility]; Protocol Last Admin: 07/21/20 08:51 Dose: 1 unit Documented by: Insulin Glargine (Lantus Solostar) 5 unit SUBQ DAILY [facility] Last Admin: 07/21/20 08:53 Dose: 5 unit Documented by: Lisinopril (Zestril) 10 mg PO DAILY [facility] Last Admin: 07/21/20 08:51 Dose: 10 mg Documented by: Metoprolol Tartrate (Lopressor) 50 mg PO BID [facility] Last Admin: 07/21/20 08:51 Dose: 50 mg Documented by: Ondansetron HCl (Zofran Inj) 4 mg IVP Q6HR PRN PRN Reason: Nausea / Vomiting Sodium Chloride (Normal Saline Flush 0.9%) 10 ml IVP PRN PRN PRN Reason: NEEDED PER PROVIDER ORDERS Sodium Chloride (Normal Saline Flush 0.9%) 10 ml IVP 0100,0900,1700 [facility] Last Admin: 07/21/20 08:53 Dose: 10 ml Documented by: Metformin HCl 1,000 mg PO BID 04/18/17 Atorvastatin [Lipitor] 25 mg PO QPM 07/20/20 Glipizide 5 mg PO BID PRN 07/20/20 Lisinopril [Zestril] 40 mg PO DAILY 07/20/20 Objective - Vital Signs/Intake & Output Reviewed Vital Signs: Yes Vital Signs: Vital Signs x48h Temp Pulse Resp BP Pulse Ox 07/21/20 07:50 36.5 C 89 18 118/87 H 93 07/21/20 05:36 36.5 C 75 18 113/91 H 94 Intake & Output: Intake & Output 07/18/20 07/19/20 07/20/20 07/21/20 23:59 23:59 23:59 23:59 Intake Total 240 Output Total 650 1500 Balance -650 -1260 - Objective General Appearance: positive: No acute distress, Alert Eyes Bilateral: positive: Normal inspection, Conjunctivae nml ENT: positive: ENT inspection nml Neck: positive: Nml inspection Respiratory: positive: No respiratory distress, Other (Diminished in bases. Faint crackles bilaterally.). negative: Wheezes, Rales Cardiovascular: positive: No murmur, Irregularly irregular. negative: Tachycardia, Bradycardia, Systolic murmur Abdomen: positive: Non-tender, No distention. negative: Tenderness, Guarding, Rebound Skin: positive: Warm, Dry Extremities: positive: Pedal edema (Has about +2 pitting edema in bilateral lower extremities. Today this is up to the knee which is improved compared to yesterday.) Neurologic/Psychiatric: positive: Oriented x3, Motor nml. negative: Disoriented to person, Disoriented to place, Disoriented to time - Lab Results Fish Bones: 07/21/20 05:10 07/21/20 05:10 Other Labs: Lab Results x24hrs 07/21/20 07/21/20 07/21/20 Range/Units 07:48 05:10 05:10 WBC (4.8-10.8) x10^3/uL RBC (4.70-6.10) 10^6/uL Hgb (14.0-18.0) g/dL Hct (42.0-52.0) % MCV (80.0-94.0) fL MCH (27.0-31.0) pg MCHC (32.0-36.0) g/dL RDW (12.0-15.0) % Plt Count (130-450) 10^3/uL MPV (7.4-11.4) fL Neut # (Auto) (1.5-6.6) 10^3/uL Lymph # (Auto) (1.5-3.5) 10^3/uL Murray # (Auto) (0.0-1.0) 10^3/uL Eos # (Auto) (0.0-0.7) 10^3/uL Baso # (Auto) (0.0-0.1) 10^3/uL Absolute Nucleated RBC x10^3/uL Nucleated RBC % /100WBC Sodium 137 (135-145) mmol/L Potassium 4.1 (3.5-5.0) mmol/L Chloride 103 (101-111) mmol/L Carbon Dioxide 23 (21-32) mmol/L Anion Gap 11.0 (6-13) BUN 24 H (6-20) mg/dL Creatinine 1.2 (0.6-1.2) mg/dL Estimated GFR (MDRD) 60 L (>89) Glucose 159 H (70-100) mg/dL POC Whole Bld Glucose 148 H (70 - 100) mg/dL Calcium 9.1 (8.5-10.3) mg/dL Phosphorus 4.4 (2.5-4.6) mg/dL Magnesium 2.0 (1.7-2.8) mg/dL Total Bilirubin (0.2-1.0) mg/dL AST (10-42) IU/L ALT (10-60) IU/L Alkaline Phosphatase (42-121) IU/L Troponin I High Sens (2.3-19.7) ng/L B-Natriuretic Peptide 910 H (5-100) pg/mL Total Protein (6.7-8.2) g/dL Albumin (3.2-5.5) g/dL Globulin (2.1-4.2) g/dL Albumin/Globulin Ratio (1.0-2.2) Lipase (22-51) U/L TSH (0.34-5.60) uIU/mL 07/21/20 07/20/20 07/20/20 Range/Units 05:10 21:10 17:32 WBC 5.5 (4.8-10.8) x10^3/uL RBC 3.50 L (4.70-6.10) 10^6/uL Hgb 10.5 L (14.0-18.0) g/dL Hct 33.8 L (42.0-52.0) % MCV 96.6 H (80.0-94.0) fL MCH 30.0 (27.0-31.0) pg MCHC 31.1 L (32.0-36.0) g/dL RDW 16.3 H (12.0-15.0) % Plt Count 115 L (130-450) 10^3/uL MPV 10.6 (7.4-11.4) fL Neut # (Auto) 4.0 (1.5-6.6) 10^3/uL Lymph # (Auto) 1.0 L (1.5-3.5) 10^3/uL Murray # (Auto) 0.4 (0.0-1.0) 10^3/uL Eos # (Auto) 0.1 (0.0-0.7) 10^3/uL Baso # (Auto) 0.0 (0.0-0.1) 10^3/uL Absolute Nucleated RBC 0.00 x10^3/uL Nucleated RBC % 0.0 /100WBC Sodium (135-145) mmol/L Potassium (3.5-5.0) mmol/L Chloride (101-111) mmol/L Carbon Dioxide (21-32) mmol/L Anion Gap (6-13) BUN (6-20) mg/dL Creatinine (0.6-1.2) mg/dL Estimated GFR (MDRD) (>89) Glucose (70-100) mg/dL POC Whole Bld Glucose 166 H 148 H (70 - 100) mg/dL Calcium (8.5-10.3) mg/dL Phosphorus (2.5-4.6) mg/dL Magnesium (1.7-2.8) mg/dL Total Bilirubin (0.2-1.0) mg/dL AST (10-42) IU/L ALT (10-60) IU/L Alkaline Phosphatase (42-121) IU/L Troponin I High Sens (2.3-19.7) ng/L B-Natriuretic Peptide (5-100) pg/mL Total Protein (6.7-8.2) g/dL Albumin (3.2-5.5) g/dL Globulin (2.1-4.2) g/dL Albumin/Globulin Ratio (1.0-2.2) Lipase (22-51) U/L TSH (0.34-5.60) uIU/mL 07/20/20 07/20/20 07/20/20 Range/Units 15:18 15:17 15:17 WBC (4.8-10.8) x10^3/uL RBC (4.70-6.10) 10^6/uL Hgb (14.0-18.0) g/dL Hct (42.0-52.0) % MCV (80.0-94.0) fL MCH (27.0-31.0) pg MCHC (32.0-36.0) g/dL RDW (12.0-15.0) % Plt Count (130-450) 10^3/uL MPV (7.4-11.4) fL Neut # (Auto) (1.5-6.6) 10^3/uL Lymph # (Auto) (1.5-3.5) 10^3/uL Murray # (Auto) (0.0-1.0) 10^3/uL Eos # (Auto) (0.0-0.7) 10^3/uL Baso # (Auto) (0.0-0.1) 10^3/uL Absolute Nucleated RBC x10^3/uL Nucleated RBC % /100WBC Sodium 138 (135-145) mmol/L Potassium 4.5 (3.5-5.0) mmol/L Chloride 100 L (101-111) mmol/L Carbon Dioxide 24 (21-32) mmol/L Anion Gap 14.0 H (6-13) BUN 24 H (6-20) mg/dL Creatinine 1.2 (0.6-1.2) mg/dL Estimated GFR (MDRD) 60 L (>89) Glucose 203 H (70-100) mg/dL POC Whole Bld Glucose (70 - 100) mg/dL Calcium 9.3 (8.5-10.3) mg/dL Phosphorus (2.5-4.6) mg/dL Magnesium (1.7-2.8) mg/dL Total Bilirubin 1.5 H (0.2-1.0) mg/dL AST 36 (10-42) IU/L ALT 32 (10-60) IU/L Alkaline Phosphatase 78 (42-121) IU/L Troponin I High Sens 24.9 H* (2.3-19.7) ng/L B-Natriuretic Peptide (5-100) pg/mL Total Protein 7.1 (6.7-8.2) g/dL Albumin 4.1 (3.2-5.5) g/dL Globulin 3.0 (2.1-4.2) g/dL Albumin/Globulin Ratio 1.4 (1.0-2.2) Lipase 36 (22-51) U/L TSH 2.32 (0.34-5.60) uIU/mL 07/20/20 Range/Units 15:17 WBC 6.6 (4.8-10.8) x10^3/uL RBC 3.69 L (4.70-6.10) 10^6/uL Hgb 11.2 L (14.0-18.0) g/dL Hct 36.0 L (42.0-52.0) % MCV 97.6 H (80.0-94.0) fL MCH 30.4 (27.0-31.0) pg MCHC 31.1 L (32.0-36.0) g/dL RDW 16.3 H (12.0-15.0) % Plt Count 122 L (130-450) 10^3/uL MPV 10.6 (7.4-11.4) fL Neut # (Auto) 5.3 (1.5-6.6) 10^3/uL Lymph # (Auto) 0.9 L (1.5-3.5) 10^3/uL Murray # (Auto) 0.4 (0.0-1.0) 10^3/uL Eos # (Auto) 0.0 (0.0-0.7) 10^3/uL Baso # (Auto) 0.0 (0.0-0.1) 10^3/uL Absolute Nucleated RBC 0.00 x10^3/uL Nucleated RBC % 0.0 /100WBC Sodium (135-145) mmol/L Potassium (3.5-5.0) mmol/L Chloride (101-111) mmol/L Carbon Dioxide (21-32) mmol/L Anion Gap (6-13) BUN (6-20) mg/dL Creatinine (0.6-1.2) mg/dL Estimated GFR (MDRD) (>89) Glucose (70-100) mg/dL POC Whole Bld Glucose (70 - 100) mg/dL Calcium (8.5-10.3) mg/dL Phosphorus (2.5-4.6) mg/dL Magnesium (1.7-2.8) mg/dL Total Bilirubin (0.2-1.0) mg/dL AST (10-42) IU/L ALT (10-60) IU/L Alkaline Phosphatase (42-121) IU/L Troponin I High Sens (2.3-19.7) ng/L B-Natriuretic Peptide (5-100) pg/mL Total Protein (6.7-8.2) g/dL Albumin (3.2-5.5) g/dL Globulin (2.1-4.2) g/dL Albumin/Globulin Ratio (1.0-2.2) Lipase (22-51) U/L TSH (0.34-5.60) uIU/mL ABX Reporting Has patient been on IV antibiotics over the past 48 hours?: No Assessment/Plan - Problem List (1) New onset of congestive heart failure Impression: He has improvement with dyspnea perspective but still has dyspnea on exertion. His lower extremity edema has improved but still quite significant. His BNP has also increased today. An echocardiogram has been ordered and is pending but I suspect he will likely have a reduced ejection fraction. He is improved, he is still not ready for discharge today. We will give him another dose of IV Lasix today. We will start him on appropriate medical therapy want to have an echocardiogram. We will hope to discharge him tomorrow on oral diuretics and appropriate therapy as long as he continues to improve. Continue with daily weights and strict I's and O's. (2) Atrial fibrillation with RVR Impression: His heart rate is better controlled on metoprolol which we will continue 50 mg twice daily. We will also continue Eliquis for anticoagulation. An echocardiogram will be obtained today. Continue to monitor on telemetry. (3) Hypertension Impression: He is currently normotensive. We will resume his lisinopril but at a lower dose of 10 mg daily. (4) History of coronary artery disease Impression: His troponins were flat and EKG is not suggestive of ischemia. We will continue aspirin and start him on Eliquis for the atrial fibrillation. Continue Lipitor. We will follow-up echocardiogram today. He will need follow-up with his barge hand on an outpatient basis. (5) Type 2 diabetes mellitus Impression: His blood glucose has been controlled ranging from 140s to 160s. We will start him on Lantus and continue with sliding scale. Carb controlled diet. A1c has been ordered and is pending.
[2020-07-21 12:26] LABS: HEMOGLOBIN A1c% 6.8 % (4.27-6.07)
[2020-07-21] MEDS: ATORVASTATIN 40 MG TABLET PO SCH (22:05)
[2020-07-22 06:15] LABS: BASOPHILS % (AUTO) 0.6 %; EOSINOPHILS # (AUTO) 0.1 10^3/uL (0.0-0.7); EOSINOPHILS % (AUTO) 1.2 %; HGB - HEMOGLOBIN 10.5 g/dL (14.0-18.0); LYMPHOCYTES # (AUTO) 1.2 10^3/uL (1.5-3.5); LYMPHOCYTES % (AUTO) 22.1 %; MEAN CORPUSCULAR HEMOGLOBIN 30.4 pg (27.0-31.0); MEAN CORPUSCULAR HGB CONC 31.4 g/dL (32.0-36.0); MEAN CORPUSCULAR VOLUME 96.8 fL (80.0-94.0); MEAN PLATELET VOLUME 10.7 fL (7.4-11.4); MONOCYTES # (AUTO) 0.4 10^3/uL (0.0-1.0); MONOCYTES % (AUTO) 7.1 %; NEUTROPHILS # (AUTO) 3.6 10^3/uL (1.5-6.6); NEUTROPHILS % (AUTO) 68.6 %; PLT - PLATELET COUNT 108 10^3/uL (130-450); RED BLOOD COUNT 3.45 10^6/uL (4.70-6.10); RED CELL DISTRIBUTION WIDTH 16.4 % (12.0-15.0); WHITE BLOOD COUNT 5.2 x10^3/uL (4.8-10.8)
[2020-07-22 06:32] LABS: CALCIUM 8.8 mg/dL (8.5-10.3); CREATININE 1.2 mg/dL (0.6-1.2); PHOSPHORUS 4.4 mg/dL (2.5-4.6)
[2020-07-22] MEDS: lisinopriL 5 MG TABLET PO SCH (08:47)
[2020-07-22] MEDS: SODIUM CHLORIDE FLUSH 0.9% 10 ML SYRINGE IVP SCH ×2 (08:48→09:25)
[2020-07-22] MEDS: METOPROLOL TARTRATE 50 MG TABLET PO SCH (08:48)
[2020-07-22] MEDS: ASPIRIN EC 81 MG TABLET PO SCH (08:48)
[2020-07-22] MEDS: INSULIN ASPART 300 UNIT/3 ML PEN SUBQ SCH ×2 (08:48→11:53)
[2020-07-22] MEDS: FUROSEMIDE 40 MG/4 ML VIAL IVP SCH (08:48)
[2020-07-22] MEDS: APIXABAN 5 MG TABLET PO SCH (08:49)
[2020-07-22] MEDS: INSULIN GLARGINE 300 UNIT/3 ML PEN SUBQ SCH (08:50)
[2020-07-22] MEDS ORDERED: SPIRONOLACTONE 25 MG TABLET PO SCH (12:00)
[2020-07-22 12:59] VITALS: BP 116/78
--- NOTE | 2020-07-22 13:38 | Discharge Plan ---
Discharge Plan Problem Reviewed?: Yes Disposition: Home, Self Care Condition: Fair Prescriptions: Spironolactone [Aldactone] 25 mg PO DAILY #30 tablet Aspirin EC [Ecotrin] 81 mg PO DAILY #30 tablet Apixaban [Eliquis] 5 mg PO BID #60 tablet Furosemide [Lasix] 40 mg PO DAILY #30 tablet Atorvastatin [Lipitor] 40 mg PO QPM #30 tablet Metoprolol Succinate [Toprol Xl] 50 mg PO BID #60 tablet lisinopriL [Zestril] 10 mg PO DAILY #30 tablet Diet: Low Sodium Activity Restrictions: Activity as Tolerated Shower Restrictions: No Driving Restrictions: No Instruction Topics: Heart Failure Meds Control, Heart Failure Diet Changes Health Concerns: You were admitted to treat shortness of breath and the cause was found to be congestive heart failure (CHF). Your cardiac Echocardiogram showed that your heart muscle is now weak, which is a new finding for you. You were also found to be in new heart rhythm, called atrial fibrillation (Afib), with a rapid heart rate. Medications for this have also been started. You are being sent home with new medications to treat the fluid buildup which caused the shortness of breath, and medicine for stroke prevention in Afib. Also, your Lisinopril and Atorvastatin doses were changed. The new prescriptions were electronically sent to your [facility] pharmacy in [place]. You were tested to see if you need a new order for home oxygen, and you do not; your oxygen level stays over 90% even with walking. Please stay on a low-salt diet, which helps decrease water retention. Continue the diabetic diet and management as you have been doing. You need to see your Hospital Attendant [facility] for further evaluation and management of the CHF. You may need a new referral to your Hospital Attendant, which you would get from your PCP. Once the cardiology evaluation and management is complete, it is advised that you participate in cardiac rehab and CHF education classes, which are available here at the [facility] Your PCP or Hospital Attendant need to refer you for this. Plan of Treatment: As above. Care Goals: Improvement in symptoms and stabilization are the goals. Assessment: Written instructions for reminders were given to the patient at discharge. No Smoking: If you smoke, Please STOP! Call for help. Follow-up with: SHELBY EVERETT PA-C [Primary Care Provider] -
--- NOTE | 2020-07-22 13:54 | DISCHARGE SUMMARY ---
Discharge Summary Admit Date: 07/20/20 Discharge Date: 07/22/20 Discharging Provider: Dr Karli Hammonds Primary Care Provider: FARHANA Baer Code Status: Do Not Attempt Resuscitation Condition at Discharge: Fair Discharge Disposition: 01 Home, Self Care - HPI History of Present Illness: From the admission H&P of Dr. Gilbert Singer: This is a 69-year-old male with history of coronary artery disease status post stenting back in 2017, type 2 diabetes mellitus on Metformin who presents today due to worsening shortness of breath. He states it has been going on for quite a few months now but he has become progressively more short of breath over the p ast 4 to 5 weeks. He has also noticed his legs become more edematous and that he developed palpitations over the past few weeks as well. He also endorses orthopnea. He reports occasional chest pain when he is physical and when his heart is racing. Dyspnea was present with exertion but is now also present at rest at times. He saw his primary care provider this morning and he was found to be in atrial fib with rapid ventricular response and so he was referred to the emergency department. The patient states he has not seen Cardiology for years, after he had a myocardial infarction back in 2017. He does take aspirin as well as a statin and lisinopril. He was previously on metoprolol but he is not sure why this was discontinued recently. He has not followed up with his Compounding Assistant in quite some time as he did not want to drive to [place] in [facility]. He has had no fevers but has felt malaise and dizzy over the past few weeks as well. He does have some diarrhea which she attributes to the Metformin. There was no nausea or vomiting. In the emergency department, he was found to be afebrile with temperature of 36.9 C. He is tachycardic with a heart rate in the 120s in atrial fibrillation. His blood pressure is 131/106. He was not tachypneic and saturating well on room air. He was given diltiazem IV with improvement in his heart rates to the 90s. His labs are significant for a blood glucose of 203 and troponins of 23 then 24.9. BNP elevated at 736. X-ray did reveal cardiomegaly and pulmonary vascular congestion. His EKG did not suggest ischemia. He was given a dose of Lasix IV in the emergency department. Given the above findings, the Hospitalist was consulted for admission. I did discuss goals of care with the patient and he would like to be a DNR. - HOSPITAL COURSE Hospital Course: (1) New onset of congestive heart failure His troponins were "flat", ruling out NE as the cause of CHF. Presumably his tachycardia was the cause of this CHF. He was put on iv diuretics and had improvement in dyspnea, but some lower extremity edema persisted. An Echocardiogram was done and showed global LV hypokinesis with a reduced ejection fraction of 20%. The RV was also dilated with severely depressed RV function and PA pressure 60 mmHg. He was started and discharged on B-ary, Spironolactone, Lasix and his Lisinopril was continued. (2) New onset atrial fibrillation with RVR He was started on Metoprolol Succinate and heart rate became better controlled, thus he was continued on Toprol XL 50 mg twice daily. He was also started on Eliquis for anticoagulation. (3) Hypertension He was normotensive on his new medications, therefore his Lisinopril 40 mg dose required a lower dose of 10 mg daily. (4) History of coronary artery disease His troponins were "flat" and EKG was not suggestive of ischemia. We did continue aspirin (and started him on Eliquis for stroke prevention in atrial fibrillation). His Lipitor was continued. He will need follow-up soon with his Compounding Assistant on an outpatient basis. (5) Type 2 diabetes mellitus His A1c was 6.8. Here, his blood glucose was ranging from 140s to 200. He was on Lantus and sliding scale Reg Insulin coverage plus a carb controlled diet. At discharge his oral diabetic meds were to be resumed. - ALLERGIES Allergies/Adverse Reactions: Allergies Allergy/AdvReac Type Severity Reaction Status Date / Time No Known Drug Allergies Allergy Verified 07/20/20 15:01 - MEDICATIONS Home Medications: Ambulatory Orders Medication Instructions Recorded Confirmed Metformin HCl 1,000 mg PO BID 04/18/17 07/20/20 Glipizide 5 mg PO BID PRN 07/20/20 07/20/20 Apixaban [Eliquis] 5 mg PO BID #60 tablet 07/22/20 Aspirin EC [Ecotrin] 81 mg PO DAILY #30 tablet 07/22/20 Atorvastatin [Lipitor] 40 mg PO QPM #30 tablet 07/22/20 Furosemide [Lasix] 40 mg PO DAILY #30 tablet 07/22/20 Metoprolol Succinate [Toprol Xl] 50 mg PO BID #60 tablet 07/22/20 Spironolactone [Aldactone] 25 mg PO DAILY #30 tablet 07/22/20 lisinopriL [Zestril] 10 mg PO DAILY #30 tablet 07/22/20 - PHYSICAL EXAM AT DISCHARGE General Appearance: positive: No acute distress, Alert Eyes Bilateral: positive: Normal inspection, EOMI ENT: positive: ENT inspection nml, No signs of dehydration Neck: positive: Nml inspection, No JVD Cardiovascular: positive: Irregularly irregular, Systolic murmur Abdomen: positive: Non-tender, No distention Skin: positive: Warm, Dry Extremities: positive: Non-tender, Other (1+ edema) Neurologic/Psychiatric: positive: Oriented x3, Motor nml - LABS Result Diagrams: 07/22/20 06:00 07/22/20 06:00 - DIAGNOSTIC IMAGING Diagnostic Imaging Results: Final report reviewed - FOLLOW UP Follow Up: See PCP in 1-2 weeks for hospital follow up and referral back to a Compounding Assistant. - TIME SPENT Time Spent in Discharge (Minutes): 60
== END 2020-07-22 14:15 | disposition home or self-care (01) | DRG 293 ==
LOC: ED 14:47 → MS2 15:59 → OBSVTOIN 07-21 11:11
PROVIDERS: ADMIT Internal Medicine; ATTEND Internal Medicine
DX: I11.0 Hypertensive heart disease with heart failure (principal); I50.20 Unspecified systolic (congestive) heart failure; I50.9 Heart failure, unspecified; I48.91 Unspecified atrial fibrillation; E11.9 Type 2 diabetes mellitus without complications; I25.10 Atherosclerotic heart disease of native coronary artery without angina pectoris; Z66 Do not resuscitate; Z95.5 Presence of coronary angioplasty implant and graft; Z79.84 Long term (current) use of oral hypoglycemic drugs; Z79.899 Other long term (current) drug therapy; Z82.49 Family history of ischemic heart disease and other diseases of the circulatory system
CPT/HCPCS: 36415; 71045; 80048; 80053; 83036; 83690; 83735; 83880; 84100; 84443; 84484; 85025; 93005; 93306; 94761; 96374; 96375; 99284; 99285; A9270; G0378; J1815

== ENCOUNTER 2020-07-29 09:32 | Outpatient (CLI) | payer MEDICARE, MEDICAID ==
[2020-07-29 15:32] LABS: BASOPHILS % (AUTO) 0.5 %; EOSINOPHILS # (AUTO) 0.1 10^3/uL (0.0-0.7); EOSINOPHILS % (AUTO) 1.4 %; HGB - HEMOGLOBIN 10.8 g/dL (14.0-18.0); LYMPHOCYTES # (AUTO) 0.8 10^3/uL (1.5-3.5); LYMPHOCYTES % (AUTO) 14.1 %; MEAN CORPUSCULAR HEMOGLOBIN 29.4 pg (27.0-31.0); MEAN CORPUSCULAR HGB CONC 30.3 g/dL (32.0-36.0); MEAN PLATELET VOLUME 11.7 fL (7.4-11.4); MONOCYTES # (AUTO) 0.4 10^3/uL (0.0-1.0); MONOCYTES % (AUTO) 6.6 %; NEUTROPHILS # (AUTO) 4.3 10^3/uL (1.5-6.6); PLT - PLATELET COUNT 113 10^3/uL (130-450); RED BLOOD COUNT 3.67 10^6/uL (4.70-6.10); RED CELL DISTRIBUTION WIDTH 16.1 % (12.0-15.0); WHITE BLOOD COUNT 5.6 x10^3/uL (4.8-10.8)
[2020-07-29 15:49] LABS: CALCIUM 9.1 mg/dL (8.5-10.3); CREATININE 1.1 mg/dL (0.6-1.2)
[2020-07-29 20:20] LABS: HEMOGLOBIN A1c% 6.7 % (4.27-6.07)
== END 2020-07-29 09:33 | disposition home or self-care (01) ==
LOC: LAB.S 09:32
PROVIDERS: ATTEND Registered Nurse
DX: E78.5 Hyperlipidemia, unspecified (principal); E11.9 Type 2 diabetes mellitus without complications; I50.9 Heart failure, unspecified; I48.91 Unspecified atrial fibrillation; D64.9 Anemia, unspecified; R06.02 Shortness of breath; I25.10 Atherosclerotic heart disease of native coronary artery without angina pectoris; I11.0 Hypertensive heart disease with heart failure
CPT/HCPCS: 36415; 80048; 82728; 83036; 83880; 85025

== ENCOUNTER 2020-08-07 13:03 | Outpatient (CLI) | payer MEDICARE, MEDICAID ==
[2020-08-07 13:20] LABS: BASOPHILS % (AUTO) 0.3 %; EOSINOPHILS # (AUTO) 0.2 10^3/uL (0.0-0.7); EOSINOPHILS % (AUTO) 2.4 %; HGB - HEMOGLOBIN 11.3 g/dL (14.0-18.0); LYMPHOCYTES # (AUTO) 0.9 10^3/uL (1.5-3.5); LYMPHOCYTES % (AUTO) 14.6 %; MEAN CORPUSCULAR HEMOGLOBIN 29.7 pg (27.0-31.0); MEAN CORPUSCULAR HGB CONC 31.3 g/dL (32.0-36.0); MEAN PLATELET VOLUME 10.4 fL (7.4-11.4); MONOCYTES # (AUTO) 0.5 10^3/uL (0.0-1.0); NEUTROPHILS # (AUTO) 4.7 10^3/uL (1.5-6.6); NEUTROPHILS % (AUTO) 74.2 %; PLT - PLATELET COUNT 127 10^3/uL (130-450); RED CELL DISTRIBUTION WIDTH 15.9 % (12.0-15.0); WHITE BLOOD COUNT 6.4 x10^3/uL (4.8-10.8)
[2020-08-07 13:46] LABS: % IRON SATURATION 11 % (20-50); IRON 53 ug/dL (45-182); TOTAL IRON BINDING CAPACITY 493 ug/dL (250-450); TRANSFERRIN 352 mg/dL (180-329)
[2020-08-07 14:02] LABS: FOLATE 22.46 ng/mL (5.90 - >24.8)
== END 2020-08-07 13:04 | disposition home or self-care (01) ==
LOC: LAB 13:03
PROVIDERS: ATTEND Physician Assistant
DX: I11.0 Hypertensive heart disease with heart failure (principal); I50.9 Heart failure, unspecified; D64.9 Anemia, unspecified; E66.9 Obesity, unspecified; E11.9 Type 2 diabetes mellitus without complications; I48.91 Unspecified atrial fibrillation; I25.10 Atherosclerotic heart disease of native coronary artery without angina pectoris
CPT/HCPCS: 36415; 82607; 82746; 83540; 83880; 84466; 85025

== ENCOUNTER 2020-08-20 07:00 | Outpatient (CLI) | payer MEDICARE, MEDICAID | END 2020-08-20 23:59 | disposition home or self-care (01) | LOC: LAB.R 07:00 | PROVIDERS: ATTEND Physician Assistant | DX: D64.9 Anemia, unspecified (principal) | CPT/HCPCS: 82274 ==

== ENCOUNTER 2020-09-02 07:46 | Outpatient (CLI) | payer MEDICARE, MEDICAID ==
[2020-09-02 15:34] LABS: HGB - HEMOGLOBIN 11.8 g/dL (14.0-18.0); MEAN CORPUSCULAR HGB CONC 30.2 g/dL (32.0-36.0); MEAN CORPUSCULAR VOLUME 96.1 fL (80.0-94.0); MEAN PLATELET VOLUME 11.4 fL (7.4-11.4); RED BLOOD COUNT 4.07 10^6/uL (4.70-6.10); RED CELL DISTRIBUTION WIDTH 15.6 % (12.0-15.0); WHITE BLOOD COUNT 6.9 x10^3/uL (4.8-10.8)
[2020-09-02 15:49] LABS: ALBUMIN 4.1 g/dL (3.2-5.5); ALBUMIN/GLOBULIN RATIO 1.4 (1.0-2.2); CALCIUM 9.2 mg/dL (8.5-10.3)
== END 2020-09-02 07:47 | disposition home or self-care (01) ==
LOC: LAB.S 07:46
PROVIDERS: ATTEND Physician Assistant
DX: I11.0 Hypertensive heart disease with heart failure (principal); I50.9 Heart failure, unspecified; I48.91 Unspecified atrial fibrillation; R60.0 Localized edema; D64.9 Anemia, unspecified; R53.83 Other fatigue; I25.10 Atherosclerotic heart disease of native coronary artery without angina pectoris; E66.9 Obesity, unspecified
CPT/HCPCS: 36415; 80053; 83036; 83880; 85027

== ENCOUNTER 2021-04-05 14:13 | Outpatient (CLI) | payer MEDICARE, MEDICAID ==
[2021-04-05 20:06] LABS: BASOPHILS % (AUTO) 0.4 %; EOSINOPHILS # (AUTO) 0.1 10^3/uL (0.0-0.7); EOSINOPHILS % (AUTO) 1.8 %; HCT - HEMATOCRIT 42.4 % (42.0-52.0); HGB - HEMOGLOBIN 13.7 g/dL (14.0-18.0); LYMPHOCYTES # (AUTO) 1.3 10^3/uL (1.5-3.5); LYMPHOCYTES % (AUTO) 18.9 %; MEAN CORPUSCULAR HEMOGLOBIN 31.1 pg (27.0-31.0); MEAN CORPUSCULAR HGB CONC 32.3 g/dL (32.0-36.0); MEAN CORPUSCULAR VOLUME 96.1 fL (80.0-94.0); MEAN PLATELET VOLUME 11.7 fL (7.4-11.4); MONOCYTES # (AUTO) 0.6 10^3/uL (0.0-1.0); MONOCYTES % (AUTO) 8.4 %; NEUTROPHILS # (AUTO) 4.8 10^3/uL (1.5-6.6); NEUTROPHILS % (AUTO) 70.2 %; PLT - PLATELET COUNT 141 10^3/uL (130-450); RED BLOOD COUNT 4.41 10^6/uL (4.70-6.10); WHITE BLOOD COUNT 6.8 x10^3/uL (4.8-10.8)
[2021-04-05 20:21] LABS: BUN - BLOOD UREA NITROGEN 44 mg/dL (6-20); CALCIUM 9.1 mg/dL (8.5-10.3); CARBON DIOXIDE - CO2 27 mmol/L (21-32); CHLORIDE 98 mmol/L (101-111); CHOL/HDL RATIO 5.8 (<5.0); CHOLESTEROL 249 mg/dL; CREATININE 1.5 mg/dL (0.6-1.2); GFR - MDRD 47 (>89); GLUCOSE 157 mg/dL (70-100); HDL CHOLESTEROL 43 mg/dL; LDL CHOLESTEROL,CALCULATED 134 mg/dL; LDL/HDL RATIO 3.1 (<3.6); POTASSIUM 4.6 mmol/L (3.5-5.0); SODIUM 136 mmol/L (135-145); TRIGLYCERIDES 358 mg/dL; VLDL CHOLESTEROL 72 mg/dL
[2021-04-05 20:26] LABS: CREATININE,URINE 69.7 mg/dL; MICROALBUM/CREATININE RATIO,UR 7.2 ug/mg (<30.0); MICROALBUMIN,URINE 0.5 mg/dL (0-300.0)
[2021-04-05 20:34] LABS: ESTIMATED AVERAGE GLUCOSE 206 mg/dL (70-100); HEMOGLOBIN A1c% 8.8 % (4.27-6.07)
== END 2021-04-05 14:14 | disposition home or self-care (01) ==
LOC: LAB.S 14:13
PROVIDERS: ATTEND Physician Assistant
DX: I11.0 Hypertensive heart disease with heart failure (principal); I50.9 Heart failure, unspecified; I48.91 Unspecified atrial fibrillation; D64.9 Anemia, unspecified; R53.83 Other fatigue; I25.10 Atherosclerotic heart disease of native coronary artery without angina pectoris; E78.5 Hyperlipidemia, unspecified; E11.9 Type 2 diabetes mellitus without complications; Z79.4 Long term (current) use of insulin
CPT/HCPCS: 36415; 80048; 80061; 82043; 82570; 83036; 83721; 83880; 85025

== ENCOUNTER 2021-07-06 16:26 | Outpatient (CLI) | payer MEDICARE, MEDICAID | END 2021-07-06 16:27 | disposition home or self-care (01) | LOC: COV 16:26 | PROVIDERS: ATTEND Family Medicine | DX: U07.1 COVID-19 (principal) ==

== ENCOUNTER 2023-03-14 09:02 | Outpatient (CLI) | payer MEDICARE, MEDICAID ==
[2023-03-14 14:42] LABS: BASOPHILS % (AUTO) 0.7 %; EOSINOPHILS # (AUTO) 0.1 10^3/uL (0.0-0.7); EOSINOPHILS % (AUTO) 2.3 %; HCT - HEMATOCRIT 40.4 % (42.0-52.0); HGB - HEMOGLOBIN 12.6 g/dL (14.0-18.0); LYMPHOCYTES % (AUTO) 17.3 %; MEAN CORPUSCULAR HEMOGLOBIN 28.1 pg (27.0-31.0); MEAN CORPUSCULAR HGB CONC 31.2 g/dL (32.0-36.0); MEAN CORPUSCULAR VOLUME 90.2 fL (80.0-94.0); MEAN PLATELET VOLUME 11.4 fL (7.4-11.4); MONOCYTES # (AUTO) 0.5 10^3/uL (0.0-1.0); MONOCYTES % (AUTO) 7.9 %; NEUTROPHILS # (AUTO) 4.1 10^3/uL (1.5-6.6); NEUTROPHILS % (AUTO) 71.4 %; PLT - PLATELET COUNT 137 10^3/uL (130-450); RED BLOOD COUNT 4.48 10^6/uL (4.70-6.10); WHITE BLOOD COUNT 5.7 x10^3/uL (4.8-10.8)
[2023-03-14 14:48] LABS: CALCIUM 9.1 mg/dL (8.5-10.3); CREATININE 1.4 mg/dL (0.6-1.2); POTASSIUM 4.6 mmol/L (3.5-5.0)
== END 2023-03-14 09:03 | disposition home or self-care (01) ==
LOC: LAB.S 09:02
PROVIDERS: ATTEND Internal Medicine Cardiovascular Disease
DX: I25.5 Ischemic cardiomyopathy (principal); I25.118 Atherosclerotic heart disease of native coronary artery with other forms of angina pectoris; I50.42 Chronic combined systolic (congestive) and diastolic (congestive) heart failure
CPT/HCPCS: 36415; 80048; 85025

== ENCOUNTER 2023-12-28 08:24 | Outpatient (CLI) | payer MEDICARE, MEDICAID | END 2023-12-28 23:59 | disposition E | LOC: EMS 08:24 ==